=== PATIENT | female | born 1945 | race African-American/Black ===

== ENCOUNTER 2016-12-23 13:21 | Emergency (ER) | payer OTHER ==
[~2016-12-23] VITALS: Ht 167.6 cm; Wt 82.5 kg
[~2016-12-23 13:21] MED LIST: TYLE3 PO; Z.0.NO CURRENT MEDS
[2016-12-23 13:23] VITALS: BP 161/73; PULSE 88; RESP 15; TEMP 98.2; O2SAT 99
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
[2016-12-23] MEDS ORDERED: IBUP-232 PO (16:15)
[2016-12-23] MEDS ORDERED: MAPA500T13 PO (16:15)
[2016-12-23] MEDS ORDERED: CYCL1TAB29 PO (16:15)
== END 2016-12-23 16:25 | disposition home or self-care (01) ==
LOC: NEPK 13:21
DX: S16.1XXA Strain of muscle, fascia and tendon at neck level, initial encounter (principal); V89.2XXA Person injured in unspecified motor-vehicle accident, traffic, initial encounter; Y92.488 Other paved roadways as the place of occurrence of the external cause
CPT/HCPCS: 70450; 72110; 72125; 99285; L0150